=== PATIENT | male | born 1975 | race Caucasian/White ===

== ENCOUNTER 2018-09-15 15:24 | Emergency (ER) | payer OTHER ==
[~2018-09-15] VITALS: Ht 167.6 cm; Wt 79.4 kg
[2018-09-15 15:37] VITALS: BP 151/110; Ht 167.6 cm; Wt 79.4 kg
== END 2018-09-15 15:53 | disposition other institution (70) ==
LOC: ED 15:24
DX: Z02.89 Encounter for other administrative examinations (principal)